=== PATIENT | male | born 1995 | race Caucasian/White ===

== ENCOUNTER 2017-03-13 18:19 | Emergency (ER) | payer BC ==
[~2017-03-13] VITALS: Ht 182.9 cm; Wt 88.6 kg
[2017-03-13 18:20] VITALS: BP 161/74; PULSE 69; TEMP 98.8
[2017-03-13] MEDS ORDERED: CEPHALEXIN500 M1 PO (20:15)
[2017-03-13] MEDS ORDERED: NORCO 325 MG-7.1 TAB PO (20:15)
== END 2017-03-13 20:28 | disposition home or self-care (01) ==
LOC: COL.ER 18:19
DX: S61.214A Laceration without foreign body of right ring finger without damage to nail, initial encounter (principal); W31.2XXA Contact with powered woodworking and forming machines, initial encounter; Y92.009 Unspecified place in unspecified non-institutional (private) residence as the place of occurrence of the external cause